=== PATIENT | female | born 1990 | race Caucasian/White ===

== ENCOUNTER → 2021-03-25 08:37 | Outpatient (CLI) | payer BC, SELFPAY ==
--- NOTE | ~2021-03-25 | MMUS_ITS ---
EXAMINATION: MM diagnostic krista BI w james, US breast RT limited HISTORY: Probable right breast abnormality TECHNIQUE: Additional 3-D tomosynthesis images of the right breast were performed and synthetic 2-D i mages were generated. CAD analysis was submitted and interpreted. High resolution Limited right breas t ultrasound was performed. COMPARISON: No prior studies for comparison. BREAST PARENCHYMAL COMPOSITION: Breast composed of scattered areas of fibroglandular density. FINDINGS: MAMMOGRAPHIC FINDINGS: There are no suspicious masses, calcifications or architectural distortion in either breast to sugges t malignancy. ULTRASOUND: Right breast ultrasound: Normal heterogeneous echotexture without focal solid or cystic mass. IMPRESSION: 1. No evidence for malignancy in either breast. BI-RADS CATEGORY 1 - NEGATIVE Reviewed, dictated and finalized at location A. IMPRESSION: 1. No evidence for malignancy in either breast. BI-RADS CATEGORY 1 - NEGATIVE
== END ==
PROVIDERS: Visit Provider Advanced Practice Midwife
DX: N63.10 Unspecified lump in the right breast, unspecified quadrant (principal)
CPT/HCPCS: 76642; 77062; 77066; G0279

== ENCOUNTER 2021-11-23 13:09 | Emergency (ER) | payer BC, SELFPAY ==
--- NOTE | 2021-11-23 13:11 | ED.URI ---
HPI - URI/Sore Throat General Chief Complaint: Upper Respiratory Infection Stated Complaint: Sore Throat Time Seen by Provider: 11/23/21 13:11 Source: patient and RN notes reviewed History of Present Illness HPI Narrative: Patient is a 31-year-old female who presents the urgent care with complaints of right ear pain, sore throat, congestion and sinus pressure. Patient states that it started on Wednesday and she woke up today with hoarse voice. Patient has been taking Claritin and DayQuil. Denies of any fevers, nausea or vomiting. Denies of any ill exposures. No other acute complaints. No acute distress noted. Patient aware of the plan of care. Some parts of this dictation were generated by voice recognition software and may contain typographical and/or grammatical inaccuracies. Related Data Home Medications Medication Instructions Recorded Confirmed etonogestrel [Nexplanon] 1 implant SUBDERMAL ONCE 11/23/21 11/23/21 ofloxacin 1 drp EACH EYE QID 11/23/21 11/23/21 sertraline 100 mg PO DAILY 11/23/21 11/23/21 Allergies Allergy/AdvReac Type Severity Reaction Status Date / Time No Known Allergies Allergy Unknown Verified 11/23/21 13:28 Review of Systems Review of Systems: CONSTITUTIONAL: Denies fever, chills, or sweats. EYES: Denies visual changes, redness, or discharge. ENT: Reports of sinus pressure/congestion, sore throat and right otalgia CARDIOVASCULAR: Denies chest pain, palpitations, or edema. RESPIRATORY: Denies cough or dyspnea. GASTROINTESTINAL: Denies abdominal pain, nausea, vomiting, or diarrhea. GENITOURINARY: Denies dysuria or hematuria. SKIN: Denies rash or itching. MUSCULOSKELETAL: Denies back pain, joint pain, or myalgia. NEUROLOGIC: Denies headache, numbness, or weakness. All other systems reviewed are negative, except as documented in HPI. PMFSH Comments At the time of my signature, I reviewed and agree with the nursing past medical, surgical, social, and family history. There is no relevant family history pertinent to the patient complaint. Exam Narrative: GENERAL: This is a well-nourished, well-developed patient, in no apparent distress. HEAD: normocephalic, atraumatic. EYES: PERRL. Sclera clear/white. Vision is grossly intact. EARS: External ears normal, auditory canals clear and without drainage, slight effusions noted bilaterally without otitis. TMs normal without perforation. Hearing grossly intact. NOSE: External nose normal with no obvious nasal discharge, nares without redness, no rhinorrhea. THROAT: Mucous membranes moist, mild erythema noted posterior pharynx with moderate postnasal drainage. Notable hoarse voice NECK: Neck supple CARDIOVASCULAR: Regular rate and rhythm without murmurs, gallops, or rubs. RESPIRATORY: Clear to auscultation. Breath sounds equal bilaterally. No wheezes, rales, or rhonchi. SKIN: warm, intact with no suspicious lesions or rash, good texture and turgor. NEURO: awake, alert, and oriented to person, place and time. There were no obvious focal neurologic abnormalities. EXTREMITIES: No clubbing, cyanosis, or edema. Course Course Level of Care: Express Care Visit Vital Signs Vital signs: Vital Signs Temperature 98.6 F 11/23/21 13:17 Pulse Rate 75 11/23/21 13:17 Respiratory Rate 14 11/23/21 13:17 Blood Pressure 136/70 11/23/21 13:17 Pulse Oximetry 100 11/23/21 13:17 Temperature 98.6 F 11/23/21 13:17 Pulse Rate 75 11/23/21 13:17 Respiratory Rate 14 11/23/21 13:17 Blood Pressure 136/70 11/23/21 13:17 Pulse Oximetry 100 11/23/21 13:17 Reviewed MDM - URI/Sore Throat MDM Narrative Medical decision making narrative: Educated the patient on viral sinusitis. Antibiotics are not necessary for viruses. Advised the patient to use a daily antihistamine such as Claritin and Benadryl prior to bedtime. Use Flonase nasal spray daily. Use a humidifier at night do not sleep with the windows open or a fan on. Complete the steroid regim
[2021-11-23 13:17] VITALS: BP 136/70; PULSE 75; RESP 14; TEMP 37; O2SAT 100
== END 2021-11-23 13:45 | disposition home or self-care (01) ==
PROVIDERS: Emergency Provider Nurse Practitioner Family
DX: J32.9 Chronic sinusitis, unspecified (principal); F41.9 Anxiety disorder, unspecified
CPT/HCPCS: 99213; G0463

== ENCOUNTER 2022-06-09 12:36 | Emergency (ER) | payer BC, SELFPAY ==
[2022-06-09 12:56] VITALS: BP 124/81; PULSE 116; RESP 18; TEMP 37.3; O2SAT 97
--- NOTE | 2022-06-09 14:13 | ED.URI ---
HPI - URI/Sore Throat General Chief Complaint: Upper Respiratory Infection Stated Complaint: Cough/Chest Congestion Time Seen by Provider: 06/09/22 14:20 Source: patient and RN notes reviewed Mode of arrival: ambulatory Limitations: no limitations History of Present Illness HPI Narrative: 42-year-old female presents with concern for cough, body aches, sore throat started yesterday. She reports she feels similar to when she had COVID. Reports her daughter has similar symptoms MD elicited complaint: cough Related Data Home Medications Medication Instructions Recorded Confirmed etonogestrel 68 mg subdermal 1 implant subdermal ONCE 11/23/21 11/23/21 implant (Nexplanon) sertraline 100 mg tablet 100 mg PO DAILY 11/23/21 11/23/21 Allergies Allergy/AdvReac Type Severity Reaction Status Date / Time No Known Allergies Allergy Unknown Verified 11/23/21 13:28 Review of Systems Review of Systems: CONSTITUTIONAL: Reports malaise EYES: Denies visual changes, redness, or discharge. ENT: Reports rhinorrhea, congestion, sore throat. Denies sinus pain, otalgia CARDIOVASCULAR: Denies chest pain, palpitations, or edema. RESPIRATORY: Reports cough. Denies dyspnea. GASTROINTESTINAL: Denies abdominal pain, nausea, vomiting, diarrhea SKIN: Denies rash or itching. MUSCULOSKELETAL: Reports myalgia. NEUROLOGIC: Denies headache. All systems reviewed & are unremarkable except as noted in HPI and below PMFSH Comments At time of signature, agree with nursing past medical, surgical, social and family history. There is no relevant family history pertinent to the presenting complaint Exam Narrative: GENERAL: Nontoxic-appearing and in no acute distress. HEAD: Normocephalic EYES: PERRLA, conjunctivae clear ENT: Nares clear, turbinates edematous and erythematous, clear discharge. Mucous membranes moist. TM pearly cole with dull light reflex bilaterally; no tragal tenderness. Oropharynx not erythematous without lesions. Tonsils not enlarged and without exudate, no drooling, no hoarseness, no trismus, uvula midline. NECK: Supple. No lymphadenopathy CHEST: Clear to auscultation, breath sounds equal. No wheezing, rhonchi, rales, or stridor. No respiratory distress, speaks in full sentences. HEART: Regular rate and rhythm. No murmur heard. SKIN: Warm, dry, no rash. NEURO: Alert and oriented x3. PSYCH: Normal mood and affect Course Course Emergency Course: Patient is aware of diagnosis, understands and agrees to treatment plan. Anticipatory guidance given. Patient agrees to follow-up as directed and is aware of reasons to seek care at the emergency department. Portions of this record may have been created with voice recognition software Level of Care: Express Care Visit Vital Signs Vital signs: Vital Signs Temperature 99.2 F 06/09/22 12:56 Pulse Rate 116 H 06/09/22 12:56 Respiratory Rate 18 06/09/22 12:56 Blood Pressure 124/81 06/09/22 12:56 Pulse Oximetry 97 06/09/22 12:56 Oxygen Delivery Room Air 06/09/22 12:56 Temperature 99.2 F 06/09/22 12:56 Pulse Rate 116 H 06/09/22 12:56 Respiratory Rate 18 06/09/22 12:56 Blood Pressure 124/81 06/09/22 12:56 Pulse Oximetry 97 06/09/22 12:56 Oxygen Delivery Room Air 06/09/22 12:56 Reviewed. MDM - URI/Sore Throat MDM Narrative Medical decision making narrative: Differential diagnosis considered: Holguin virus, strep pharyngitis, allergic rhinitis, upper respiratory tract infection, sinusitis, rhinosinusitis, nasopharyngitis. viral pharyngitis, otitis media, otitis externa, pneumonia, bronchitis, viral cough syndrome, viral syndrome, and influenza. Exam findings show no acute concerns or changes; patient is non-toxic appearing and is in no distress. Patient is appropriate for outpatient treatment and follow-up. Lab Data Attestation: I reviewed the patient's lab results. Labs: Influenza A Screen Negative
== END 2022-06-09 14:57 | disposition home or self-care (01) ==
PROVIDERS: Emergency Provider Nurse Practitioner
DX: J11.1 Influenza due to unidentified influenza virus with other respiratory manifestations (principal); Z20.822 Contact with and (suspected) exposure to COVID-19
CPT/HCPCS: 87426; 87804; 99213; C9803; G0463

== ENCOUNTER 2024-05-22 09:04 | Emergency (ER) | payer BC, SELFPAY ==
[2024-05-22 09:21] VITALS: BP 125/78; PULSE 104; RESP 16; TEMP 36.9; O2SAT 100
--- NOTE | 2024-05-22 09:39 | ED.URI ---
HPI - URI/Sore Throat General Chief Complaint: Upper Respiratory Infection Stated Complaint: ear infection/upper respiratory Time Seen by Provider: 05/22/24 09:39 Source: patient Mode of arrival: ambulatory Limitations: no limitations History of Present Illness HPI Narrative: 33-year-old female presented for complaint of right ear pain, cough, and sore throat. Onset 7 days. She was seen in clinic 5 days ago and prescribed amoxicillin which she has been compliant. Also taking a few doses of Sudafed. Endorses ear drainage and tinnitus. Denies nausea, vomiting, diarrhea, fevers or chills. Related Data Home Medications Medication Instructions Recorded Confirmed etonogestrel 68 mg subdermal 1 implant subdermal ONCE 11/23/21 11/23/21 implant (Nexplanon) sertraline 100 mg tablet 100 mg PO DAILY 11/23/21 11/23/21 Allergies Allergy/AdvReac Type Severity Reaction Status Date / Time No Known Allergies Allergy Unknown Verified 11/23/21 13:28 Review of Systems Review of Systems: CONSTITUTIONAL: Denies malaise, chills, or fever. EYES: Denies visual changes, redness, or discharge. ENT: reports rhinorrhea, congestion, ear pain CARDIOVASCULAR: Denies chest pain, palpitations, or edema. RESPIRATORY: Denies cough or dyspnea. GASTROINTESTINAL: Denies abdominal pain, nausea, vomiting, diarrhea SKIN: Denies rash MUSCULOSKELETAL: Denies myalgia. NEUROLOGIC: Denies headache. All systems reviewed & are unremarkable except as noted in HPI and below PMFSH Comments At time of signature, agree with nursing past medical, surgical, social and family history. There is no relevant family history pertinent to the presenting complaint Exam Narrative: GENERAL: Well-appearing EYES: PERRLA, conjunctivae clear ENT: Nares clear. Mucous membranes moist. Bilateral TMs erythematous, bulging and intact; canals not erythematous, no drainage; no tragal tenderness. Oropharynx not erythematous without lesions. oropharynx normal, no drooling, no hoarseness, no trismus, uvula midline. NECK: Supple. No lymphadenopathy CHEST: Clear to auscultation, breath sounds equal. No wheezing, rhonchi, rales, or stridor. No respiratory distress, speaks in full sentences. HEART: Regular rate and rhythm. No murmur heard. SKIN: Warm, dry, no rash. NEURO: Alert and oriented x3. PSYCH: Normal mood and affect Course Course Emergency Course: Patient is aware of diagnosis, understands and agrees to treatment plan. Anticipatory guidance given. Patient agrees to follow-up as directed and is aware of reasons to seek care at the emergency department. Portions of this record may have been created with voice recognition software Level of Care: Express Care Visit Vital Signs Vital signs: Vital Signs Temperature 98.4 F 05/22/24 09:21 Pulse Rate 104 H 05/22/24 09:21 Respiratory Rate 16 05/22/24 09:21 Blood Pressure 125/78 05/22/24 09:21 Pulse Oximetry 100 05/22/24 09:21 Oxygen Delivery Room Air 05/22/24 09:21 Temperature 98.4 F 05/22/24 09:21 Pulse Rate 104 H 05/22/24 09:21 Respiratory Rate 16 05/22/24 09:21 Blood Pressure 125/78 05/22/24 09:21 Pulse Oximetry 100 05/22/24 09:21 Oxygen Delivery Room Air 05/22/24 09:21 Reviewed MDM - URI/Sore Throat MDM Narrative Medical decision making narrative: Discussed physical exam findings consistent with bilateral otitis media. Advised supportive measures and signs/symptoms to go to the ER. Pt is appropriate for outpt treatment and f/u. Differential Diagnosis Differential diagnosis: Likely upper respiratory infection, otitis media, sinusitis, viral infection, bronchitis, influenza and pharyngitis Discharge Plan Discharge Clinical Impression: Otitis media Qualifiers: Otitis media type: suppurative Chronicity: acute Laterality: bilateral Recurrence: non-recurrent Spontaneous tympanic membrane rupture: without spontaneous rupture Qualified Code(s): H66.003 - Acute suppurative otitis media without spontaneous rupture of ear drum, bilateral Patient Disposition: Home, Self-Care Condition: Stable Instructions: Antibiotic Form, Ear Infection (ED) Additional Instructions: Take antibiotics as directed. stop amoxicillin. Start the Augmentin. Recommend antihistamine such as Benadryl, Zyrtec or Melvi for sinus congestion Along with Flonase nasal spray, 1 spray in each nostril once daily until symptoms improve Symptomatic treatment includes: rest, fluids, and increase humidity of the air at home. Tylenol 1000mg every 8 hours as needed to reduce fever, pain Please schedule a follow-up visit with your personal physician If your symptoms persist, change or worsen significantly, go to the emergency department for further evaluation. Prescriptions: New prednisone 20 mg tablet 40 mg PO DAILY 4 Days Qty: 8 0RF amoxicillin-pot clavulanate 875-125 mg tablet 1 tablet PO Q12H 7 Days Qty: 14 0RF No Action sertraline 100 mg tablet 100 mg PO DAILY Nexplanon 68 mg Implant 1 implant SUBDERMAL ONCE amoxicillin 875 mg tablet 875 mg PO Q12H 7 Days Qty: 14 0RF Follow-up/Referrals: PHYSICIAN,COST REDUCTION ENGINEER [Primary Care Provider] -
== END 2024-05-22 09:50 | disposition home or self-care (01) ==
PROVIDERS: Emergency Provider Nurse Practitioner Family
DX: H66.003 Acute suppurative otitis media without spontaneous rupture of ear drum, bilateral (principal)
CPT/HCPCS: 99213; G0463